=== PATIENT | female | born 1995 | race Caucasian/White ===

== ENCOUNTER → 2024-03-08 | Outpatient (CLI) | payer SELFPAY, OTHER ==
--- NOTE | 2024-03-08 17:58 | CT_ITS ---
STUDY: CT FACIAL BONES WITHOUT CONTRAST REASON FOR EXAM: Female, 28 years old. Chronic sinusitis RADIATION DOSAGE (If Supplied By Facility): CTDIvol = ( 33.06 ) mGy, DLP = ( 891.70 ) mGycm TECHNIQUE: The patient was scanned in a multi detector CT scanner. Sagittal and coronal images were reconstructed. Individualized dose optimization techniques were used for this CT. COMPARISON: None. FINDINGS: Normal soft tissue structures. Normal orbital rucker and orbital contents. Normal nasal bones and anterior nasal spine. Normal facial bones. There is no demonstrated fracture. Opacification of the right maxillary sinus. Mucosal thickening of the left maxillary sinus. Opacification of the ethmoid sinuses worse on the right side. Mucosal thickening along the medial wall of the right sphenoid sinus. Nasal septal deviation towards the left side of midline. Soft tissue fullness in the nasal fossa bilaterally suggestive of possible nasal polyposis. CT/Sinus/Facial Bone IMPRESSION: Sinusitis as described. Possible nasal polyposis. Electronically Signed: Chip Joseph MD at 10:52 EST ,
== END | disposition home or self-care (01) ==
PROVIDERS: PCP Otolaryngology; Referring Provider Otolaryngology; Visit Provider Otolaryngology
DX: J32.9 Chronic sinusitis, unspecified (principal); J33.9 Nasal polyp, unspecified
CPT/HCPCS: 70486